=== PATIENT | male | born 1975 | race African-American/Black ===

== ENCOUNTER 2016-10-10 08:43 | Emergency (ER) | payer SELFPAY ==
[~2016-10-10] VITALS: Ht 175.3 cm; Wt 79.0 kg
[2016-10-10 08:48] VITALS: Ht 175.3 cm; Wt 79.0 kg
--- NOTE | 2016-10-10 09:11 | ERD ---
ER Documentation Chief Complaint Date/Time DATE: 10/10/16 TIME: 09:10 Chief Complaint laceration above left eyebrow, hit will a ladder HPI This is a 41-year-old male presenting to the emergency department complaining of a laceration above his left eyebrow status post having a heavy ladder fall on top of his head. Patient states that the pain is localized right where the lateral head and he describes it as achy throbbing 6 out of 10. He denies significant loss of consciousness, he states maybe loss of consciousness for a couple seconds. Patient denies any vision changes, nausea, vomiting. Patient states that he has had tetanus shots within the last couple years ROS All systems reviewed and are negative except as per history of present illness. Allergies Allergies: Coded Allergies: No Known Allergy (Unverified , 10/10/16) PMhx/Soc Medical and Surgical Hx: pt denies Medical Hx, pt denies Surgical Hx Hx Alcohol Use: Yes Hx Substance Use: Yes Hx Tobacco Use: Yes Smoking Status: Current every day smoker Physical Exam Vitals Vital Signs Date Time Temp Pulse Resp B/P Pulse Ox O2 Delivery O2 Flow Rate FiO2 10/10/16 11:21 77 18 120/69 99 Room Air 10/10/16 08:48 98.9 102 18 127/73 98 Physical Exam GENERAL: well-developed/well-nourished, in no apparent distress, non-toxic appearing HENT: NC/AT, bilateral tympanic membrane is normal with good cone of light, nares patent, oropharynx clear without exudates EYES: Conjunctiva normal, PERRLA, EOMI, no nystagmus noted NECK: Supple, no lymphadenopathy PULM: CTA bilaterally, no rales, rhonchi, or wheezing heard CV: Normal S1S2, RRR, good capillary refill GI: Soft, non-distended, normal bowel sounds, non-tender BACK: No midline tenderness, no masses, No CVAT EXT: No clubbing, cyanosis, or edema NEURO: Alert and orientated to person, place, and time. CN II-IIX intact. Gait and coordination were normal. Hand bottler helper strength were equal and within normal limits SKIN: Hematoma above the left eyebrow periorbital region with a abrasion PSYCH: Normal mood and mentation, patient denied SI Procedures/MDM This is a 41-year-old male presenting to the emergency department with an abrasion and hematoma forming a contusion from a ladder that was fell on top of his head. Patient has stable vital signs, he appears well and speaking clearly. He has a normal neurological exam with normal gait. The contusion has a hematoma with an abrasion, there is no lesion that needs to be sutured. We have cleansed it with copious amount of normal saline and I applied Steri- Strip. A CT scan of the head was done and did not show any evidence of any acute intracranial pathology or fracture. Patient is hematuria stable and neurovascular intact to be discharged home with precautions to return to the emergency department for any worsening signs or symptoms. He understands and agrees with plan. Departure Diagnosis: Primary Impression: Laceration Additional Impression: Scalp contusion Condition: Stable JOEL SALMERON PA-C Oct 10, 2016 09:10
--- NOTE | 2016-10-10 10:54 | RADRPT ---
PROCEDURE: CT brain without contrast CLINICAL INDICATION: Trauma, head pain, laceration left eye with hematoma above eyebrow TECHNIQUE: CT of the brain without contrast was performed on a multidetector CT scanner, with multi planar reformats. One or more of the following dose reduction techniques were used: Automated expos ure control, adjustment in mA and / or kV according to patient size, use of iterative reconstructive technique. CTDIvol = 45 mGy; DLP = 720 mGy-cm. COMPARISON: None available FINDINGS: No acute intracranial hemorrhage is identified. No extra-axial fluid collection is seen. There is no mass effect. No midline shift is identified. Ventricles and sulci are within normal limits for size and configuration. The density of the brain is unremarkable. Hopkins-white differentiation is preserved. Osseous structures are unremarkable. Mastoid air cells and imaged paranasal sinuses grossly clear. There is upper left periorbital soft tissue swelling extending into the adjacent frontal scalp. IMPRESSION: 1. No evidence of acute intracranial pathology. 2. Left periorbital/frontal scalp swelling. RPTAT: VV .Steve Hearn MD, Date Time Electronically viewed and signed by .Steve Hearn MD, on 10/10/2016 10:54 .O/
[2016-10-10 11:21] VITALS: BP 120/69; PULSE 77; RESP 18
== END 2016-10-10 11:22 | disposition home or self-care (01) ==
LOC: FTE 08:43
DX: S01.81XA Laceration without foreign body of other part of head, initial encounter (principal); F17.210 Nicotine dependence, cigarettes, uncomplicated; W20.8XXA Other cause of strike by thrown, projected or falling object, initial encounter; Y92.9 Unspecified place or not applicable
CPT/HCPCS: 70450